=== PATIENT | female | born 1990 | race Caucasian/White ===

== ENCOUNTER 2019-10-08 13:52 | Emergency (ER) | payer MEDICAID ==
[~2019-10-08] VITALS: Ht 157.5 cm; Wt 68.2 kg
[2019-10-08 14:41] VITALS: BP 114/72; TEMP 98.4
[2019-10-08 17:26] LABS: COLLECTION METHOD CLEAN CATCH
[2019-10-08 17:29] LABS: HEMATOCRIT 46.6 % (37.0-47.0); HEMOGLOBIN 16.1 g/dl (12.5-16.0); MEAN CELL VOLUME 89 fl (80.0-100.0); MEAN CORPUSCULAR HEMOGLOBIN 31 pg (27.0-31.0); MEAN CORPUSCULAR HGB CONC 35 g/dl (33.0-37.0); MEAN PLATELET VOLUME 9.7 fl (7.4-10.4); PLATELET COUNT 215 K/mm3 (130-400); RED BLOOD COUNT 5.24 M/mm3 (4.10-5.30)
[2019-10-08 17:39] LABS: ALBUMIN 4.9 gm/dL (3.5-5.0); CALCIUM 9.5 mg/dL (8.4-10.2); CREATININE, serum 0.68 (0.52-1.25); POTASSIUM 4.1 mmol/L (3.4-5.0); TOTAL PROTEIN 8.2 gm/dL (6.4-8.2)
[2019-10-08 17:44] LABS: MUCOUS Present /lpf; PH 5 (5-8); URINE APPEARANCE Cloudy; URINE BACTERIA None Seen /hpf; URINE BILIRUBIN Negative (NEGATIVE); URINE BLOOD 2+ (NEGATIVE); URINE COLOR Yellow; URINE GLUCOSE Negative (NEGATIVE); URINE KETONE Negative (NEGATIVE); URINE LEUKOCYTE ESTERASE Negative (NEGATIVE); URINE NITRATE Negative (NEGATIVE); URINE PROTEIN(semi-quant) 1+ (NEGATIVE); URINE UROBILINOGEN Negative (NEGATIVE)
[2019-10-08] MEDS ORDERED: ZOFRAN ODT4 MG PO (17:55)
[2019-10-08 18:11] LABS: BAND 2 % (0-10); LYMPHOCYTE 10 % (20.0-51.0); NEUTROPHILS 86 % (42.0-75.2)
[2019-10-08 18:18] VITALS: PULSE 98
== END 2019-10-08 18:50 | disposition home or self-care (01) ==
LOC: COL.ER 13:52
PROVIDERS: Nurse Practitioner
DX: R11.2 Nausea with vomiting, unspecified (principal); R19.7 Diarrhea, unspecified; Z98.51 Tubal ligation status
CPT/HCPCS: J2405; J7030